=== PATIENT | male | born 1985 | race Caucasian/White ===

== ENCOUNTER → 2020-06-29 14:04 | Outpatient (BNVA) | payer OTHER, SELFPAY | PROVIDERS: Visit Provider Nurse Practitioner | DX: M25.561 Pain in right knee (principal) | CPT/HCPCS: 73562 ==

== ENCOUNTER 2020-07-15 10:46 | Outpatient (CLI) | payer OTHER, SELFPAY ==
--- NOTE | 2020-07-15 11:01 | MR_ITS ---
WS: [id number] MRI RIGHT KNEE NONCONTRAST TECHNIQUE: Axial PD, coronal PD fat sat, coronal PD, sagittal PD, and sagittal PD fat-sat images obta boydd. CLINICAL INFORMATION: S83.004A - Unspecified dislocation of right patella, initial encounter COMPARISON: Radiograph June 29, 2020 FINDINGS: Distal quadriceps and patella tendons are intact. Hypertrophic patella. Normal anterior and posterior cruciate ligaments. Moderate suprapatellar effusion. Prepatellar and infrapatellar soft tissue edema . Chronic thinning of the medial and lateral meniscus. No acute appearing meniscal tears. Subchondral edema involving the patella worse involving the inferior and medial poles with associated avulsion fracture. Avulsion fracture measures 7 mm corresponding to the radiographic findings. Diffu se edema with irregularity and high-grade tear involving the medial patellar retinaculum. Diffuse german ma consistent with contusion involving the lateral femoral condyle. Constellation findings most consi stent with recent patella dislocation. Recommend correlation for patellar instability. Moderate supra patellar effusion. Diffuse soft tissue edema about the knee. Tiny popliteal cyst. Chondromalacia poole lla advanced for patient this age. Medial and lateral collateral ligaments are intact. MR/MR knee RT wo con* [id number] IMPRESSION: 1. Normal anterior and posterior cruciate ligaments. 2. Small avulsion inferior medial pole of the patella measuring 7 mm correspon ds to the x-ray findings. Associated edema in the adjacent patella consistent w ith acute avulsion. 3. High-grade tear with edema and irregularity involving the medial patellar r etinaculum with diffuse edema involving the lateral femoral condyle. Constellat ion of findings most consistent with recent patellar dislocation with patellar avulsion fracture. 4. Recommend correlation with patellar instability. 5. Moderate suprapatellar effusion. 6. Diffuse soft tissue edema involving the knee soft tissues. 7. No acute meniscal tears. 8. 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
== END 2020-07-15 10:47 | disposition home or self-care (01) ==
LOC: RADWPI 10:49
PROVIDERS: PCP Nurse Practitioner Family; Visit Provider Orthopaedic Surgery
DX: S83.004A Unspecified dislocation of right patella, initial encounter (principal); S83.8X1A Sprain of other specified parts of right knee, initial encounter; X58.XXXA Exposure to other specified factors, initial encounter; M25.461 Effusion, right knee; R60.0 Localized edema; M22.41 Chondromalacia patellae, right knee
CPT/HCPCS: 73721

== ENCOUNTER 2020-07-27 14:06 | Outpatient (RCR) | payer OTHER, SELFPAY | END 2020-08-10 23:59 | disposition home or self-care (01) | LOC: SPT 14:06 | PROVIDERS: PCP Nurse Practitioner Family; Referring Provider Orthopaedic Surgery; Visit Provider Orthopaedic Surgery | DX: S83.004D Unspecified dislocation of right patella, subsequent encounter (principal); X58.XXXD Exposure to other specified factors, subsequent encounter | CPT/HCPCS: 97110; 97161 ==

== ENCOUNTER 2020-08-11 06:00 | Outpatient (RCR) | payer OTHER, SELFPAY | END 2020-09-09 23:59 | disposition home or self-care (01) | LOC: SPT 06:00 | PROVIDERS: PCP Nurse Practitioner Family; Referring Provider Orthopaedic Surgery; Visit Provider Orthopaedic Surgery | DX: S83.004D Unspecified dislocation of right patella, subsequent encounter (principal); X58.XXXD Exposure to other specified factors, subsequent encounter | CPT/HCPCS: 97110 ==